=== PATIENT | male | born 1960 | race Hispanic/Latino ===

== ENCOUNTER 2017-01-14 12:25 | Day surgery (SDC) | payer OTHER ==
[~2017-01-14] VITALS: Ht 167.6 cm; Wt 78.0 kg
[~2017-01-14 12:25] MED LIST: HYDROMORPHONE HC2 MG PO
[2017-01-14 13:48] LABS: POINT-OF-CARE METER ID UU13113696
== END 2017-01-14 15:45 | disposition home or self-care (01) ==
LOC: CATH 12:25
PROVIDERS: Surgery
DX: I87.8 Other specified disorders of veins (principal); C25.9 Malignant neoplasm of pancreas, unspecified; E11.9 Type 2 diabetes mellitus without complications; F17.200 Nicotine dependence, unspecified, uncomplicated
CPT/HCPCS: 82948; C1752; C1894; J0690; J1644; J2250; J3010; S0020